=== PATIENT | female | born 1945 | race Caucasian/White ===

== ENCOUNTER 2019-04-13 16:10 | Inpatient (IN) | payer MEDICARE, OTHER ==
[~2019-04-13] VITALS: Ht 160 cm; Wt 85.0 kg
[~2019-04-13 16:10] MED LIST: ALLO100T30 PO; ATEN25TA PO; HYDR473S47 PO; LEVO125T5 PO; LEVO750T26 PO; LIOT5TAB11 PO; LISI-170 PO; METF500T17 PO; MULT-642 PO; NAPR220C2 PO; OMEP-110 PO; SERT100T32 PO; SIMV20TA3 PO; TRAZ50TA66 PO
[2019-04-13] MEDS ORDERED: SODIUM CHLORIDE FLUSH 10ML SYR IVF ONE (16:30)
[2019-04-13] MEDS ORDERED: DIPH,PERTUSS(ACELL),TET VAC/PF 0.5 ML IM-VACC ONE ×2 (16:30→18:40)
[2019-04-13 16:46] LABS: BASOPHILS # (AUTO) 0.08 x10^3/uL (0-0.1); BASOPHILS % (AUTO) 1 % (0-1); EOSINOPHILS % (AUTO) 2 % (1-7); LYMPHOCYTES # (AUTO) 2.29 x10^3/uL (1-3.4); LYMPHOCYTES % (AUTO) 24 % (22-44); MD NO; MEAN CORPUSCULAR HEMOGLOBIN 30.6 pg (27.0-34.8); MEAN CORPUSCULAR HGB CONC 32.6 g/dL (32.4-35.8); MEAN CORPUSCULAR VOLUME 93.9 fL (80-100); MEAN PLATELET VOLUME 9.8 fL (7.4-10.4); MONOCYTES # (AUTO) 0.82 x10^3/uL (0.2-0.8); MONOCYTES % (AUTO) 8 % (2-9); NEUTROPHILS # (AUTO) 6.38 x10^3/uL (1.8-6.8); NEUTROPHILS % (AUTO) 65 % (42-75); PLATELET COUNT 189 x10^3/uL (130-400); RED BLOOD COUNT 3.82 x10^6/uL (3.82-5.3); RED CELL DISTRIBUTION WIDTH 15.7 % (9.6-15.2)
[2019-04-13 16:57] LABS: ALBUMIN 3.8 g/dL (3.4-5.0); ANION GAP 7 mmol/L (5-15); CALCIUM 9.3 mg/dL (8.5-10.1); CHLORIDE 109 mmol/L (98-107); CREATININE 1.38 mg/dL (0.55-1.02)
--- NOTE | 2019-04-13 17:56 | NUR ---
NEUROPHYSIOLOGIST: PT AMBULATORY WITH STEADY GAIT TO ROOM AT THIS TIME. WITH PT.
--- NOTE | 2019-04-13 18:00 | NUR ---
THIS IS A 73Y F THAT COMES IN W/ C/O RECENT CAT SCRATCH AND BITE TO HER LEFT HAND AND FOREARM. PT STS SATURDAY HER CAT BIT AND SCRATCHED HER. SINCE THEN HER HAND HAS BECOME SWOLLEN AND IS BECOMING RED. PT DOES NOT KNOW LAST TETANUS. PT CONNECTED TO MONITORING.
--- NOTE | 2019-04-13 18:59 | NUR ---
IV STARTED ABX STARTED NO CULTURES PRIOR PER
[2019-04-13] MEDS ORDERED: AMPICILLIN/SULBACTAM 3 GM in SODIUM CHLORIDE 0.9% 100 ML IV ONE (19:00)
--- NOTE | 2019-04-13 19:13 | NUR ---
HOSPITALIST AT BEDSIDE TO DISCUSS POC WITH PT
[2019-04-13] MEDS ORDERED: ONDANSETRON 2MG/ML, 2ML IVPush PRN (19:30)
--- NOTE | 2019-04-13 19:50 | NUR ---
IV NOT FLUSHING AT THIS TIME. NEW IV PLACED REMAINING ABX INFUSING AT TIME OF TRANSFER
[2019-04-13 21:21] VITALS: BP 147/68
[2019-04-13] MEDS: ACETAMINOPHEN 325 MG TABLET PO PRN (21:31)
[2019-04-13] MEDS: SODIUM CHLORIDE 0.9% 1,000 ML IV SCH (21:31)
[2019-04-13] MEDS: TRAZODONE 100MG TABLET PO SCH (23:42)
[2019-04-14] MEDS: AMPICILLIN/SULBACTAM 3 GM in SODIUM CHLORIDE 0.9% 100 ML IV SCH ×4 (00:30→20:12)
[2019-04-14 00:58] VITALS: BP 107/65
[2019-04-14 04:52] LABS: BASOPHILS # (AUTO) 0.12 x10^3/uL (0-0.1); BASOPHILS % (AUTO) 2 % (0-1); EOSINOPHILS # (AUTO) 0.18 x10^3/uL (0-0.4); EOSINOPHILS % (AUTO) 3 % (1-7); LYMPHOCYTES # (AUTO) 1.95 x10^3/uL (1-3.4); LYMPHOCYTES % (AUTO) 28 % (22-44); MD NO; MEAN CORPUSCULAR HEMOGLOBIN 30.9 pg (27.0-34.8); MEAN CORPUSCULAR HGB CONC 32.5 g/dL (32.4-35.8); MEAN PLATELET VOLUME 9.9 fL (7.4-10.4); MONOCYTES # (AUTO) 0.54 x10^3/uL (0.2-0.8); MONOCYTES % (AUTO) 8 % (2-9); NEUTROPHILS # (AUTO) 4.32 x10^3/uL (1.8-6.8); NEUTROPHILS % (AUTO) 61 % (42-75); PLATELET COUNT 153 x10^3/uL (130-400); RED BLOOD COUNT 3.17 x10^6/uL (3.82-5.3); RED CELL DISTRIBUTION WIDTH 15.8 % (9.6-15.2)
[2019-04-14 05:06] LABS: ANION GAP 7 mmol/L (5-15); CALCIUM 8.5 mg/dL (8.5-10.1); CHLORIDE 113 mmol/L (98-107); CREATININE 1.13 mg/dL (0.55-1.02)
[2019-04-14] MEDS: LEVOTHYROXINE 125 MCG TABLET PO SCH (06:26)
[2019-04-14] MEDS: ACETAMINOPHEN 325 MG TABLET PO PRN (06:26)
[2019-04-14] MEDS: SODIUM CHLORIDE 0.9% 1,000 ML IV SCH ×2 (06:28→18:37)
[2019-04-14 07:45] VITALS: BP 113/72
[2019-04-14] MEDS ORDERED: TRAZODONE 100MG TABLET PO SCH (09:00)
[2019-04-14] MEDS: OMEPRAZOLE 20 MG CAPSULE.DR PO SCH (09:02)
[2019-04-14] MEDS: SERTRALINE 100MG TABLET PO SCH (09:02)
[2019-04-14] MEDS: LIOTHYRONINE 5 MCG TABLET PO SCH ×2 (09:02→12:31)
[2019-04-14] MEDS: ATENOLOL 25 MG TABLET PO SCH (09:02)
[2019-04-14] MEDS: ALLOPURINOL 100 MG TABLET PO SCH (09:02)
[2019-04-14] MEDS: LISINOPRIL 20 MG TABLET PO SCH (09:03)
[2019-04-14 09:15] LABS: HCT (SEDRATE) 30.2 % (34.6-47.8)
[2019-04-14] MEDS ORDERED: GADOTERATE 10 MMOL/20 ML SYR ONE (10:19)
[2019-04-14 12:23] VITALS: BP 111/72
[2019-04-14] MEDS: LACTOBACILLUS CHEW TABLET PO SCH ×2 (16:03→20:12)
[2019-04-14 19:18] VITALS: BP 139/72
[2019-04-14] MEDS: SIMVASTATIN 20 MG TABLET PO SCH (20:12)
[2019-04-14] MEDS: TRAZODONE 100MG TABLET PO SCH (20:12)
[2019-04-15 00:23] VITALS: BP 132/75
[2019-04-15] MEDS: AMPICILLIN/SULBACTAM 3 GM in SODIUM CHLORIDE 0.9% 100 ML IV SCH ×4 (01:26→18:17)
[2019-04-15 05:15] LABS: BASOPHILS # (AUTO) 0.03 x10^3/uL (0-0.1); BASOPHILS % (AUTO) 1 % (0-1); EOSINOPHILS # (AUTO) 0.19 x10^3/uL (0-0.4); EOSINOPHILS % (AUTO) 4 % (1-7); LYMPHOCYTES # (AUTO) 1.37 x10^3/uL (1-3.4); LYMPHOCYTES % (AUTO) 27 % (22-44); MD NO; MEAN CORPUSCULAR HEMOGLOBIN 30.4 pg (27.0-34.8); MEAN CORPUSCULAR HGB CONC 32.1 g/dL (32.4-35.8); MEAN CORPUSCULAR VOLUME 94.9 fL (80-100); MONOCYTES # (AUTO) 0.37 x10^3/uL (0.2-0.8); MONOCYTES % (AUTO) 8 % (2-9); NEUTROPHILS # (AUTO) 3.06 x10^3/uL (1.8-6.8); NEUTROPHILS % (AUTO) 61 % (42-75); PLATELET COUNT 146 x10^3/uL (130-400); RED BLOOD COUNT 3.18 x10^6/uL (3.82-5.3); RED CELL DISTRIBUTION WIDTH 15.8 % (9.6-15.2)
[2019-04-15 05:21] LABS: ANION GAP 3 mmol/L (5-15); CALCIUM 8.5 mg/dL (8.5-10.1); CHLORIDE 117 mmol/L (98-107)
[2019-04-15 05:22] LABS: CREATININE 1.03 mg/dL (0.55-1.02)
[2019-04-15] MEDS: SODIUM CHLORIDE 0.9% 1,000 ML IV SCH ×2 (05:38→17:32)
[2019-04-15] MEDS: LEVOTHYROXINE 125 MCG TABLET PO SCH (05:39)
[2019-04-15 07:24] VITALS: BP 149/76
[2019-04-15] MEDS: LACTOBACILLUS CHEW TABLET PO SCH ×3 (07:54→21:06)
[2019-04-15] MEDS: LIOTHYRONINE 5 MCG TABLET PO SCH ×2 (07:56→11:04)
[2019-04-15] MEDS: OMEPRAZOLE 20 MG CAPSULE.DR PO SCH (07:56)
[2019-04-15] MEDS: ATENOLOL 25 MG TABLET PO SCH (07:56)
[2019-04-15] MEDS: SERTRALINE 100MG TABLET PO SCH (07:56)
[2019-04-15] MEDS: LISINOPRIL 20 MG TABLET PO SCH (07:57)
[2019-04-15] MEDS: ALLOPURINOL 100 MG TABLET PO SCH (07:57)
[2019-04-15 13:40] VITALS: BP 145/64
[2019-04-15 18:59] VITALS: BP 160/78
[2019-04-15] MEDS: SIMVASTATIN 20 MG TABLET PO SCH (21:06)
[2019-04-15] MEDS: TRAZODONE 100MG TABLET PO SCH (21:06)
[2019-04-16 00:30] VITALS: BP 144/74
[2019-04-16] MEDS: AMPICILLIN/SULBACTAM 3 GM in SODIUM CHLORIDE 0.9% 100 ML IV SCH ×3 (01:28→11:45)
[2019-04-16] MEDS: SODIUM CHLORIDE 0.9% 1,000 ML IV SCH ×2 (01:29→10:57)
[2019-04-16] MEDS: OMEPRAZOLE 20 MG CAPSULE.DR PO SCH (06:35)
[2019-04-16] MEDS: LEVOTHYROXINE 125 MCG TABLET PO SCH (06:35)
[2019-04-16 07:09] VITALS: BP 136/75
[2019-04-16] MEDS: LIOTHYRONINE 5 MCG TABLET PO SCH ×2 (09:09→12:46)
[2019-04-16] MEDS: SERTRALINE 100MG TABLET PO SCH (09:10)
[2019-04-16] MEDS: LISINOPRIL 20 MG TABLET PO SCH (09:10)
[2019-04-16] MEDS: LACTOBACILLUS CHEW TABLET PO SCH (09:10)
[2019-04-16] MEDS: ATENOLOL 25 MG TABLET PO SCH (09:10)
[2019-04-16] MEDS: ALLOPURINOL 100 MG TABLET PO SCH (09:10)
[2019-04-16] MEDS ORDERED: AMOX1TAB64 PO (10:44)
[2019-04-16] MEDS: ACETAMINOPHEN 325 MG TABLET PO PRN (11:23)
== END 2019-04-16 14:01 | disposition home or self-care (01) | DRG 602 ==
LOC: ED 19:10 → 3N 19:15 → ED 19:27 → DCLOUNGE 04-16 13:47
PROVIDERS: ADMIT Internal Medicine; ATTEND Hospitalist
PROC: 0X9J0ZZ Drainage of Right Hand, Open Approach (ICD-10-PCS; principal; 2019-04-14)
DX: L02.511 Cutaneous abscess of right hand (principal); N17.0 Acute kidney failure with tubular necrosis; L03.113 Cellulitis of right upper limb; D64.9 Anemia, unspecified; E03.9 Hypothyroidism, unspecified; E78.5 Hyperlipidemia, unspecified; I10 Essential (primary) hypertension; I48.91 Unspecified atrial fibrillation; M10.9 Gout, unspecified; M19.90 Unspecified osteoarthritis, unspecified site; M65.9 Synovitis and tenosynovitis, unspecified; W55.01XA Bitten by cat, initial encounter; Y93.89 Activity, other specified; Y92.89 Other specified places as the place of occurrence of the external cause; Y99.8 Other external cause status; Z88.0 Allergy status to penicillin; Z88.1 Allergy status to other antibiotic agents
CPT/HCPCS: 10060; 36415; 80048; 82040; 85025; 85651; 86140; 87070; 87205; 90471; 90715; 96365; G0378; J0295; A9575; J7030